=== PATIENT | male | born 1945 | race Caucasian/White ===

== ENCOUNTER 2019-10-21 17:37 | Inpatient (IN) | payer BC, MEDICARE ==
[~2019-10-21] VITALS: Ht 172.7 cm; Wt 83.4 kg
[2019-10-21] MEDS ORDERED: NS 1,000 ML IV SCH (17:50)
[2019-10-21] MEDS ORDERED: AMLO10TA5 PO (17:55)
[2019-10-21] MEDS ORDERED: SIMV40TA20 PO (17:55)
[2019-10-21] MEDS ORDERED: SPIR-10 PO (17:55)
[2019-10-21] MEDS ORDERED: ATEN100T PO (17:55)
[2019-10-21] MEDS ORDERED: CITA20TA6 PO (17:55)
[2019-10-21] MEDS ORDERED: QUIN40TA26 PO (17:55)
--- NOTE | 2019-10-21 18:10 | REPVR ---
PROCEDURE INFORMATION: Exam: CT Head Without Contrast Exam date and time: 10/21/2019 5:55 PM Age: 74 years old Clinical indication: Altered mental status/memory loss; Confusion or disorientation TECHNIQUE: Imaging protocol: Computed tomography of the head without contrast. Axial and coronal reformatted images were created and reviewed. Radiation optimization: All CT scans at this facility use at least one of these dose optimization techniques: automated exposure control; mA and/or kV adjustment per patient size (includes targeted exams where dose is matched to clinical indication); or iterative reconstruction. COMPARISON: No relevant prior studies available. FINDINGS: Brain: Patchy areas of hypoattenuation in the periventricular and subcortical white matter, consistent with chronic small vessel ischemic disease. Focal, well-circumscribed hypodensity in the right basal ganglia, consistent with remote insult. No CT evidence of acute intracranial hemorrhage or acute territorial infarction. No significant mass effect or midline shift. Basal cisterns patent. Ventricles: Prominence of the cortical sulci, cisterns and ventricular system, consistent with cerebral and cerebellar volume loss. Bones/joints: No acute osseous abnormality. Sinuses: Complete opacification of the left sphenoid sinus. Partial opacification of the ethmoid air cells , right sphenoid sinus and bilateral inferior frontal sinuses. Mastoid air cells: Grossly unremarkable. Soft tissues: Grossly unremarkable. Vasculature: Calcific atherosclerotic disease in the cavernous internal carotid arteries, as well as the vertebro-basilar system. IMPRESSION: 1. No CT evidence of acute intracranial pathology. 2. Additional findings, as above. Electronically signed by: Blake Stanton On 10/21/2019 18:10:35 PM
[2019-10-21 18:29] LABS: BASO # 0.1 10^3/uL (0.0-0.2); BASO % 0.9 % (0.0-1.0); EOS # 0.2 10^3/uL (0.0-0.5); EOS % 1.8 % (0.0-3.0); HEMATOCRIT 43.3 % (42.0-52.0); LYMPH # 3.4 10^3/uL (1.5-5.0); LYMPH % 27.4 % (24.0-44.0); MEAN CORPUSCULAR HEMOGLOBIN 31.9 pg (27.0-33.0); MEAN CORPUSCULAR HGB CONC 34.6 g/dl (32.0-36.5); MEAN CORPUSCULAR VOLUME 92.1 fl (80.0-96.0); MONO % 8.3 % (0.0-5.0); NEUTROPHILS # 7.7 10^3/uL (1.5-8.5); NEUTROPHILS % 61.3 % (36.0-66.0); PLATELET COUNT, AUTOMATED 156 10^3/uL (150-450); WHITE BLOOD COUNT 12.5 10^3/uL (4.0-10.0)
[2019-10-21 18:55] VITALS: BP 138/64
[2019-10-21 19:02] LABS: ACETAMINOPHEN LEVEL < 2.0 UG/ML (10.0-30.0); ALBUMIN 3.6 GM/DL (3.2-5.2); ALT/SGPT 20 U/L (12-78); BILIRUBIN,DIRECT 0.2 MG/DL (0.0-0.2); BILIRUBIN,TOTAL 0.8 MG/DL (0.2-1.0); BLOOD UREA NITROGEN 20 MG/DL (7-18); CALCIUM LEVEL 8.9 MG/DL (8.8-10.2); CARBON DIOXIDE LEVEL 23 MEQ/L (21-32); CHLORIDE LEVEL 106 MEQ/L (98-107); CK-MB VALUE MASS 1.9 NG/ML (<3.6); CPK CREATINE PHOSPHOKINASE 121 U/L (39-308); ETHYL ALCOHOL (ETHANOL) < 0.003 % (0.000-0.010); GLOMERULAR FILTRATION RATE > 60.0 (>42); GLUCOSE, FASTING 77 MG/DL (70-100); MB/CK RELATIVE INDEX 1.57 (< OR =4); POTASSIUM SERUM 4.5 MEQ/L (3.5-5.1); SALICYLATE LEVEL 3.5 MG/DL (5.0-30.0); SODIUM LEVEL 139 MEQ/L (136-145); TOTAL PROTEIN 7.3 GM/DL (6.4-8.2); TROPONIN I < 0.02 NG/ML (< 0.10)
[2019-10-21 19:12] LABS: AMPHETAMINES LEVEL URINE NEGATIVE (NEGATIVE); BARBITURATES URINE NEGATIVE (NEGATIVE); BENZODIAZEPINES URINE NEGATIVE (NEGATIVE); CANNABINOIDS URINE NEGATIVE (NEGATIVE); COCAINE METABOLITE URINE NEGATIVE (NEGATIVE); METHADONE URINE NEGATIVE (NEGATIVE); OPIATES URINE NEGATIVE (NEGATIVE); PHENCYCLIDINE URINE NEGATIVE (NEGATIVE)
--- NOTE | 2019-10-21 21:02 | HPEPDOC ---
[facility] Medical History & Physical Date of Admission October 21, 2019 Date of Service: October 21, 2019 Attending Physician: Adali Kitchen MD History and Physical CHIEF COMPLAINT: Altered mental status HISTORY OF PRESENT ILLNESS: Patient is a 74-year-old male with past medical history of CAD s/p CABG & stents x 2, newly diagnosed prostate cancer, HTN, depression, HLD who presented to the emergency room after having episodes of altered mental status at home. Patient states he was sitting talking to son when he started mumbling, the patient states that he didn't even understand himself what he was saying to his family. His family said that this lasted 6-8 mins today. It had happened on 10/20/19 as w lina. Hhere was no documented facial droop, drooling noted by family during these episodes. The patient admits to some increased depression due to having to be home more now, lethargy. He denies chest pain, shortness of breath, n/v/d, abdominal pain, sick contacts, decreased appetite, falling, lightheadedness, dizziness, blurry vision, headaches, weakness, cough, fever, bleeding. In the ER, VS were stable. CT head showed focal, well-circumscribed hypodensity in the right basal ganglia that could be consistent with remote insult in past but no evidence of acute pathology. Swallowing was wnl. The patient had some difficulty with serial sevens only. ECG showed normal sinus rhythm, troponin ne gative. CXR showed no acute cardiopulmonary findings. UDS neg. Patient was AAOx 3 and had no focal deficits on exam. Patient was admitted for further workup of altered mental status r/o TIA. PAST MEDICAL HISTORY: 1. CAD s/p CABG, stents x 2 2. Prostate cancer, diagnosed three months ago 3. HTN 4. Depression 5. HLD 6. ? old CVA, seen on new CT scan head PAST SURGICAL HISTORY: 1. CABG 2. cardiac stent placement SOCIAL HISTORY: Smoker-1 PPD, 50 years, cigarettes. denies alcohol, drug use. PCP- Dr. Rudi Rodriguez, Extracorporeal Technician- [facility], Hem/Onc- Dr. Bradshaw. Lives with his . DNR, trial period of intubation. FAMILY HISTORY: Father: CAD, DM type II. at 58 y/o. Mother: cancer, head. at 80 y/o. ALLERGIES: Please see below. HOME MEDICATIONS: Please see below. PHYSICAL EXAMINATION: CONSTITUTIONAL: No acute distress, resting comfortably, AAO x 3 EYES: PERRLA, EOM intact HENT, MOUTH: Normocephalic, atraumatic, moist mucous membranes NECK: SUPPLE, no JVD, no lymphadenopathy, no carotid bruit CV: Regular rate and rhythm, S1S2 normal, no murmurs/rubs/gallops RESPIRATORY: Clear to auscultation bilaterally, no rales/rhonchi/wheezes GI: BS positive in 4 quadrants, soft, nontender, nondistended, no rebound or guarding, no organomegaly : Deferred MUSCULOSKELETAL: Normal ROM. No cyanosis, clubbing, swelling, joint deformity, extremity edema INTEGUMENTARY: Intact, no rashes, no lesions, no erythema NEUROLOGIC: Strength 5/5 strenth in all extremities, no motor or sensory deficits. Cranial Nerves II-XII are intact, no focal deficits PSYCHIATRIC: Mood and affect are normal LABORATORY DATA: Please see below IMAGING: CXR: No acute cardiopulmonary findings. CT head: Focal, well-circumscribed hypodensity in the right basal ganglia, consistent with remote insult. No CT evidence of acute intracranial pathology. ASSESSMENT: 74 y/o M admitted for altered mental status r/o TIA vs. CVA. PLAN: 1. Altered mental status (AMS) r/o TIA vs. CVA. Prostate cancer would put patient at increased hypercoagulable state, concerning with diagnosis but no documented clot history. AMS resolved. Appears patient has had prior insults, unknown to him from CT head above. F/u echo, carotid US, tele to monitor for arrhythmias, lipid panel. Neuro checks Q4 hrs. Started on ASA, c/w home statin. Consider MRI in AM with prior history of likely undetected stroke and presenting symptoms. 2. Prostate cancer, new diagnosis. F/u with heme/onc as outpatient. 3. CAD s/p CABG, stent x 2. Denies chest pain, shortness of breath. ECG NSR, trop neg. C/w ASA, statin, BB. 4. HTN. Stable. C/w home medication. 5. Depression. C/w home medication. 6. HLD. F/u lipid panel. Statin. 7. Depression. Denies HI/SI. C/w home medication. 8. DVT px. Enoxaparin SC daily. DISPOSITION: Admitted under inpatient status. Plan is discharge home when med ically improved. Vital Signs Vital Signs Date Time Temp Pulse Resp B/P (MAP) Pulse Ox O2 Delivery O2 Flow Rate FiO2 10/21/19 20:00 Room Air 10/21/19 19:28 18 98 10/21/19 19:15 56 140/64 (89) 10/21/19 18:55 99.0 Laboratory Data Labs 24H Laboratory Tests 2 10/21/19 18:13: Immature Granulocyte % (Auto) 0.3, Neutrophils (%) (Auto) 61.3, Lymphocytes (%) (Auto) 27.4, Monocytes (%) (Auto) 8.3H, Eosinophils (%) (Auto) 1.8, Basophils (%) (Auto) 0.9, Neutrophils # (Auto) 7.7, Lymphocytes # (Auto) 3.4, Monocytes # (Auto) 1.0H, Eosinophils # (Auto) 0.2, Basophils # (Auto) 0.1, Nucleated Red Blood Cells % (auto) 0.0, Anion Gap 10, Glomerular Filtration Rate > 60.0, Calc ium Level 8.9, Total Bilirubin 0.8, Direct Bilirubin 0.2, Aspartate Amino Transf (AST/SGOT) 14, Alanine Aminotransferase (ALT/SGPT) 20, Alkaline Phosphatase 68, Ammonia 22, Total Creatine Kinase 121, Creatine Kinase MB 1.9, Creatine Kinase MB Relative Index 1.57, Troponin I < 0.02, Total Protein 7.3, Albumin 3.6, Albumin/Globulin Ratio 1.0, Thyroid Stimulating Hormone (TSH) 1.190, Salicylates Level 3.5L, Acetaminophen Level < 2.0L, Ethyl Alcohol Level < 0.003 10/21/19 18:20: Urine Color ANDRE, Urine Appearance CLEAR, Urine pH 6.0, Urine Specific Webster 1.025, Urine Protein NEGATIVE, Urine Glucose (UA) NEGATIVE, Urine Ketones 1+H, Urine Blood NEGATIVE, Urine Nitrite NEGATIVE, Urine Bilirubin NEGATIVE, Urine Urobilinogen 2.0H, Urine Leukocyte Esterase NEGATIVE, Urine WBC (Auto) 0, Urine RBC (Auto) 1, Urine Hyaline Casts (Auto) 5, Urine Bacteria (Auto) NEGATIVE, Urine Squamous Epithelial Cells 0, Urine Mucus (Auto) LARGE, Urine Sperm (Auto) , Urine Opiates Screen NEGATIVE, Urine Methadone Screen NEGATIVE, Urine Barbiturates Screen NEGATIVE, Urine Phencyclidine Screen NEGATIVE, Urine Amphetamines Screen NEGATIVE, Urine Benzodiazepines Screen NEGATIVE, Urine Cocaine Metabolite Screen NEGATIVE, Urine Cannabinoids Screen NEGATIVE CBC/BMP Laboratory Tests 10/21/19 18:13 Home Medications Scheduled Amlodipine Besylate (Amlodipine Besylate) 10 Mg Tablet, 10 MG PO DAILY Atenolol (Atenolol) 100 Mg Tablet, 100 MG PO QHS Citalopram Hydrobromide (Citalopram HBr) 20 Mg Tablet, 20 MG PO DAILY Quinapril HCl (Quinapril HCl) 40 Mg Tablet, 40 MG PO DAILY Simvastatin (Simvastatin) 40 Mg Tablet, 40 MG PO QHS Spironolactone (Spironolactone) 25 Mg Tablet, 25 MG PO QAM Allergies Coded Allergies: No Known Allergies (Unverified , 10/21/19) A-FIB/CHADSVASC A-FIB History Current/History of A-Fib/PAF?: No Current PO Anticoag Therapy: No Age/Risk Factor Scoring CHADSVASC: CHADSVASC Response (Comments) Value Age Risk Factor Age >/= 75 years old 2 Hx of CHF No 0 Hx of HTN Yes 1 Hx of Stroke/TIA/or VTE Yes 2 Hx of Diabetes No 0 Hx of Vascular Disease No 0 Total 5 Treatment Treatment ordered: Other (enoxaparin) Other anticoagulant ordered: enoxaparin Adali Kitchen MD October 21, 2019 21:02
[2019-10-21 21:42] LABS: INR 1.07; PROTHROMBIN TIME 13.6 SECONDS (11.8-14.0)
[2019-10-21 21:43] LABS: PARTIAL THROMBOPLASTIN TIME 31.8 SECONDS (25.0-38.4)
[2019-10-21 22:15] VITALS: BP 135/61
[2019-10-21 22:56] VITALS: BP 159/62
[2019-10-21 22:57] LABS: CHOLESTEROL LEVEL 137 MG/DL (<200); CHOLESTEROL RISK RATIO 3.914 (<5); HDL CHOLESTEROL 35 MG/DL (>40); LDL CHOLESTEROL 83 MG/DL (<100); NON-HDL-C 102 MG/DL; TRIGLYCERIDES LEVEL 94 MG/DL (<150)
[2019-10-21] MEDS: atenoloL 50 MG TAB PO SCH (23:50)
[2019-10-22] VITALS (7 sets, daily range): BP systolic 115–156; BP diastolic 55–69
[2019-10-22] MEDS: ASPIRIN 81 MG CHEW TABLET PO SCH ×2 (00:04→21:02)
[2019-10-22] MEDS: ENOXAPARIN 40MG/0.4ML SYRINGE (J1650 PER 10MG) SC SCH ×2 (00:05→21:01)
--- NOTE | 2019-10-22 01:41 | REPVR ---
PROCEDURE INFORMATION: Exam: US Duplex Bilateral Extracranial Arteries Exam date and time: 10/22/2019 1:00 AM Age: 74 years old Clinical indication: Other: TIA TECHNIQUE: Imaging protocol: Real-time Duplex ultrasound scan of the bilateral carotid and vertebral arteries combining rudolph scale, color Doppler and spectral waveform analysis. Bilateral exam. COMPARISON: CT Head without contrast 10/21/2019 5:53 PM FINDINGS: Right common carotid artery: Small amount of atherosclerotic plaque. No occlusion or stenosis. Waveforms are normal. Right internal carotid artery: Small amount of atherosclerotic plaque in the bulb. No occlusion or stenosis. Waveforms are normal. Right ICA/CCA ratio: Within normal limits. Right external carotid artery: No stenosis in the origin. Right vertebral artery: Unremarkable. Antegrade flow. Left common carotid artery: Small amount of atherosclerotic plaque distally. No occlusion or stenosis. Waveforms are normal. Left internal carotid artery: Small amount of atherosclerotic plaque in the bulb. No occlusion or stenosis. Waveforms are normal. Left ICA/CCA ratio: Within normal limits. Left external carotid artery: No stenosis in the origin. Left vertebral artery: Unremarkable. Antegrade flow. IMPRESSION: No hemodynamically significant carotid arterial stenosis. REFERENCES: SRU CRITERIA. The degree of internal carotid artery stenosis is based on criteria defined by the Society of Radiologists in Ultrasound (SRU). Normal is no stenosis. Mild is less than 50% stenosis. Moderate is 50-69% stenosis. Severe is greater than 69% stenosis to near occlusion. Near occlusion is a markedly narrowed lumen. Total occlusion is no detectable patent lumen. Electronically signed by: Blake Stanton On 10/22/2019 01:40:47 AM
[2019-10-22 06:43] LABS: HEMATOCRIT 43.6 % (42.0-52.0); HEMOGLOBIN 14.4 g/dl (13.5-17.5); MEAN CORPUSCULAR HEMOGLOBIN 30.9 pg (27.0-33.0); MEAN CORPUSCULAR VOLUME 93.6 fl (80.0-96.0); PLATELET COUNT, AUTOMATED 143 10^3/uL (150-450); RED BLOOD COUNT 4.66 10^6/uL (4.30-6.10); WHITE BLOOD COUNT 10.2 10^3/uL (4.0-10.0)
[2019-10-22 07:16] LABS: ALBUMIN 3.3 GM/DL (3.2-5.2); ALT/SGPT 16 U/L (12-78); BILIRUBIN,TOTAL 0.7 MG/DL (0.2-1.0); BLOOD UREA NITROGEN 22 MG/DL (7-18); CALCIUM LEVEL 8.6 MG/DL (8.8-10.2); CARBON DIOXIDE LEVEL 27 MEQ/L (21-32); CHLORIDE LEVEL 106 MEQ/L (98-107); CREATININE FOR GFR 0.82 MG/DL (0.70-1.30); GLOMERULAR FILTRATION RATE > 60.0 (>42); GLUCOSE, FASTING 91 MG/DL (70-100); POTASSIUM SERUM 4.6 MEQ/L (3.5-5.1); SODIUM LEVEL 138 MEQ/L (136-145); TOTAL PROTEIN 6.9 GM/DL (6.4-8.2)
--- NOTE | 2019-10-22 07:27 | ECGEPIP ---
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
[2019-10-22] MEDS ORDERED: amLODIPine 10 MG TAB PO SCH (09:00)
[2019-10-22] MEDS: SPIRONOLACTONE 25 MG TAB PO SCH (09:02)
[2019-10-22] MEDS: CitaloPRAM (CeleXA) 20 MG TAB PO SCH (09:02)
[2019-10-22] MEDS: lisinopriL 40 MG TAB PO SCH (09:03)
--- NOTE | 2019-10-22 10:18 | REP ---
Clinical: Altered mental status . Comparison: None . Findings: The mediastinum and cardiac silhouette are stable and within normal limits for portable technique. Evidence of prior sternotomy and CABG. The lung uribe are clear without acute consolidation, effusion, or pneumothorax. Skeletal structures are intact. Impression: No acute cardiopulmonary process appreciated. Electronically Signed by Nolan Cortez MD 10/22/2019 10:09 A
--- NOTE | 2019-10-22 13:12 | REPVR ---
PROCEDURE INFORMATION: Exam: MR Head Without Contrast Exam date and time: 10/22/2019 12:18 PM Age: 74 years old Clinical indication: Speech disturbance; Patient HX: PT states confusion/aphasia 10/20/19 that subsided within 10 minutes, and came back 10/21/19 for approx 20 minutes then subsided. PT states no HX of CVA, no priors TECHNIQUE: Imaging protocol: MR of the head without contrast. COMPARISON: CT Head without contrast 10/21/2019 5:53 PM FINDINGS: Brain: Focal, non contiguous areas of true diffusion restriction in the left temporoparietal deep white matter and along the left parietal cortices in keeping with recent acute to subacute infarcts; the most conspicuous infarcts demonstrate mild correlative cytotoxic edema on the T2 weighted imaging. There is no evidence of hemorrhagic conversion. The brain demonstrates generalized volume loss. Patchy foci of increased signal intensity in the deep and subcortical white matter on the T2 weighted imaging most likely representing chronic small vessel ischemic change. A chronic right basal ganglia lacunar infarct demonstrates hemosiderin staining. Vasculature: Flow void for the M1 segment of the left middle cerebral artery is visualized, appears less conspicuous than on the right, but could feasibly be related to volume averaging/slice selection. Ventricles: The ventricles appear mildly enlarged in keeping with volume loss. Bones/joints: Unremarkable. Soft tissues: Unremarkable. Sinuses: The left sphenoid sinus is opacified by mucosal disease. There is moderate ethmoid opacity. Relatively mild left maxillary sinus mucosal thickening. A midline posterior nasopharyngeal Tornwaldt or mucosal retention cyst measures 6 mm. Mastoid air cells: Normal as visualized. No mastoid effusion. Orbits: Unremarkable. IMPRESSION: Small, recent acute to subacute, separate left parietal deep white matter and cortical infarcts. Electronically signed by: Nayana Bianchi On 10/22/2019 13:12:18 PM
--- NOTE | 2019-10-22 13:53 | IPNPDOC ---
Text Note Date of Service The patient was seen on 10/22/19. NOTE Subjective: Patient is a 68 2/1 male with a PMHx of CAD s/p CABG and stents x2, HTN, DLP, Depression, Prostate CA (Newly diagnosed), who presented to the ER after having an episode of confusion and difficulty word finding while at home. Patient was in the middle of a conversation with his son when he started to mumble and had difficulty expressing his words. . She reported that this occurred for about 6-8 minutes on 10/19 and fully resolved. Patient presented to the ER on 10/20 for further evaluation. Patient was seen and examined at the bedside. And currently reports that he does not express any headache, nausea, vomiting, chest pain, short of breath, palpitations, cough, abdominal pain, sedation, diarrhea, or urinary discomfort. Patient hospice any further symptoms since that first occurrence. Objective: Vitals (See below) General: Lying in bed, appears comfortable, AAOx3 HEENT: NC, AT CVS: +S1S2 Lungs: Fair air entry b/l, no visual rhonchi, wheezing or crackles Abdomen: Soft, ND, NT, +BSx4 Extremities: - Edema, - Calf tenderness Assessment and plan: Expressive aphasia - likely 2/2 acute on subacute L parietal deep white matter and cortical infarcts - Patient reports that they've had full resolution of their symptoms - Patient has been on aspirin 81, as an outpatient 2 months ago but had stopped - Remain hemodynamically stable - Lipid profile noted - CT head 10/21: - MRI Brain 10/21: Small, recent acute to subacute, separate left parietal deep white matter and cortical infarcts. - Carotid duplex us 10/21: No hemodynamically significant carotid arterial stenosis. - ECHO pending - Will order MRA brain - c/w Neurochecks - c/w ASA 81 and Simvastatin Prostate cancer - Recently diagnosed - Will have outpatient follow up with Oncology CAD s/p CABG & Stent x 2 - Currently is asymptomatic and denies chest pain, shortness of breath - Troponin negative - EKG without any ischemic changes - c/w ASA, Simvastatin and Atenolol HTN - BP currently well controlled - Allow for permissive HTN - Will discontinue Amlodipine - c/w Atenolol and Spironolactone with holding parameters DLP - c/w Simvastatin Depression - c/w Citalopram DVT prophylaxis - c/w Lovenox Disposition: - Will keep patient for another 24 hours for continued telemetry monitoring VS,Viktoriya, I+O VS, Viktoriya, I+O Laboratory Tests 10/21/19 18:13 10/22/19 06:17 Vital Signs Date Time Temp Pulse Resp B/P (MAP) Pulse Ox O2 Delivery O2 Flow Rate FiO2 10/22/19 10:00 98.9 87 15 125/55 (78) 92 Room Air I&O- Last 24 Hours up to 6 AM 10/22/19 05:59 Intake Total 600 ml Output Total 0 ml Balance 600 ml ANGELA ASHFORD MD October 22, 2019 13:53
[2019-10-22] MEDS ORDERED: SIMVASTATIN 40 MG TAB PO SCH (21:00)
[2019-10-22] MEDS: atenoloL 50 MG TAB PO SCH (21:00)
[2019-10-23 02:00] VITALS: BP 139/69
[2019-10-23 06:00] VITALS: BP 142/61
[2019-10-23] MEDS: lisinopriL 40 MG TAB PO SCH (08:52)
[2019-10-23] MEDS: SPIRONOLACTONE 25 MG TAB PO SCH (08:52)
[2019-10-23] MEDS: CitaloPRAM (CeleXA) 20 MG TAB PO SCH (08:52)
[2019-10-23 10:00] VITALS: BP 142/61
[2019-10-23] MEDS ORDERED: ASPI81CH8 PO (10:14)
--- NOTE | 2019-10-23 13:10 | REP ---
MR angiography the brain without contrast: History: CVA. A fascia. Technique: 3-D [id number] MR angiography of the brain is acquired in the usual fashion and maximal intensity projection images were generated in rotational format about the vertical and horizontal axes. In addition, source axial T1-weighted images are viewed in cine mode. MR angiographic findings: The distal vertebral arteries are patent and co-dominant. Basilar artery is a little tortuous but widely patent. The posterior cerebral and superior cerebellar vessels are normal and symmetric. The distal internal carotid arteries are unremarkable. There is a focal high-grade stenosis of the distal middle cerebral artery on the left at its bifurcation. This is at the lateral to the acute infarct pattern seen on yesterday's MRI brain study. There is no evidence of bains aneurysm or arteriovenous malformation. No vessel cutoff is seen. Impression: High-grade stenosis of the distal middle cerebral artery on the left at its bifurcation. Otherwise negative. Electronically Signed by Topher Ferrari MD 10/23/2019 01:02 P
--- NOTE | 2019-10-23 15:35 | DS.PDOC ---
Discharge Summary General Date of Admission October 21, 2019 at 20:31 Date of Discharge 10/23/19 Discharge Summary PROCEDURES PERFORMED DURING STAY: [None]. SECONDARY DIAGNOSES: 1. CAD s/p CABG, stents x 2 2. Prostate cancer, diagnosed three months ago 3. HTN 4. Depression 5. HLD 6. CVA COMPLICATIONS/CHIEF COMPLAINT: TIA. HISTORY OF PRESENT ILLNESS: Patient is a 74-year-old male with past medical history of CAD s/p CABG & stents x 2, newly diagnosed prostate cancer, HTN, depression, HLD who presented to the emergency room after having episodes of altered mental status at home. Patient stated he was sitting talking to son when he started mumbling, the patient stated that he didn't even understand himself what he was saying to his family. His family said that this lasted 6-8 mins. It had happened on 10/20/19 as well. There was no documented facial droop, drooling noted by family during these episodes. The patient admits to some increased depression due to having to be home more now, lethargy. In the ER, VS were stable. CT head showed focal, well-circumscribed hypodensity in the right basal ganglia that could be consistent with remote insult in past but no evidence of acute pathology. Swallowing was wnl. The patient had some difficulty with serial sevens only. ECG showed normal sinus rhythm, troponin negative. CXR showed no acute cardiopulmonary findings. UDS neg. Patient was AAOx 3 and had no focal deficits on exam. Patient was admitted for further workup of altered mental status r/o TIA. HOSPITAL COURSE: MRI did reveal acute-subacute left parietal infarct, and cortical infarcts. Neurology previously consulted. Further workup was unremarkable. Patient medically optimized, and discharged home with outpatient follow up. Expressive aphasia - likely 2/2 acute on subacute L parietal deep white matter and cortical infarcts - Patient reported full resolution of symptoms - Patient has been on aspirin 81, as an outpatient 2 months ago but had stopped - MRI Brain 10/21: Small, recent acute to subacute, separate left parietal deep white matter and cortical infarcts. - Carotid duplex us 10/21: No hemodynamically significant carotid arterial stenosis. - ECHO pending report - no gross abnormalities - follow up outpatient for results - MRA brain pending report - ASA 81 and Simvastatin Prostate cancer - Recently diagnosed - Will have outpatient follow up with Oncology CAD s/p CABG & Stent x 2 - Currently is asymptomatic and denies chest pain, shortness of breath - Troponin negative - EKG without any ischemic changes - c/w ASA, Simvastatin and Atenolol HTN - BP well controlled - Will discontinue Amlodipine - c/w Atenolol and Spironolactone with holding parameters DLP - c/w Simvastatin Depression - c/w Citalopram DISCHARGE MEDICATIONS: Please see below. ALLERGIES: Please see below. PHYSICAL EXAMINATION ON DISCHARGE: Vitals (See below) General: Lying in bed, appears comfortable, AAOx3 HEENT: NC, AT CVS: +S1S2 Lungs: Fair air entry b/l, no visual rhonchi, wheezing or crackles Abdomen: Soft, ND, NT, +BSx4 Extremities: - Edema, - Calf tenderness LABORATORY DATA: Please see below. ACTIVITY: [As tolerated]. DIET: 2 gram sodium, heart healthy DISPOSITION: Home, Self-Care. DISCHARGE INSTRUCTIONS: 1. Follow up neurology in 7-10 days or as scheduled. 2. FOllow up PCP in 3-5 days. 3. Follow up oncology as scheduled DISCHARGE CONDITION: [Stable]. TIME SPENT ON DISCHARGE: 35 minutes. Vital Signs/I&Os Vital Signs Date Time Temp Pulse Resp B/P (MAP) Pulse Ox O2 Delivery O2 Flow Rate FiO2 10/23/19 10:00 98.6 55 12 142/61 (88) 96 Room Air I&O- Last 24 Hours up to 6 AM 10/23/19 06:00 Intake Total 1010 ml Output Total 1225 ml Balance -215 ml Discharge Medications Scheduled Amlodipine Besylate (Amlodipine Besylate) 10 Mg Tablet, 10 MG PO DAILY, (Reported) Aspirin (Children's Aspirin) 81 Mg Tab.chew, 81 MG PO DAILY@2100 Atenolol (Atenolol) 100 Mg Tablet, 100 MG PO QHS, (Reported) Citalopram Hydrobromide (Citalopram HBr) 20 Mg Tablet, 20 MG PO DAILY, (Reported) Quinapril HCl (Quinapril HCl) 40 Mg Tablet, 40 MG PO DAILY, (Reported) Simvastatin (Simvastatin) 40 Mg Tablet, 40 MG PO QHS, (Reported) Spironolactone (Spironolactone) 25 Mg Tablet, 25 MG PO QAM, (Reported) Allergies Coded Allergies: No Known Allergies (Unverified , 10/21/19) ALEKSANDER CORLEY MD October 23, 2019 15:35
--- NOTE | 2019-10-23 21:58 | ECHO ---
DATE OF PROCEDURE: 10/22/2019 DATE OF : 1945 AGE: 74 GENDER: Male HEIGHT: 68 inches WEIGHT: 183 pounds BODY SURFACE AREA: 1.97 meters squared INPATIENT: [address] [place] [address], room 4222 REFERRING PHYSICIAN: Yanni García MD INDICATION: Acute myocardial infarction. Transient ischemic attack (TIA). MEASUREMENTS: 2D Measurements: RV: 3.9 cm LV: 3.8 cm Septum: 1.2 cm Posterior wall: 1.2 cm Aortic root: 3.2 cm LA: 4.0 cm LVEF: 75-80% DOPPLER MEASUREMENTS: AV: 1.4 meters per second LVOT: 1.2 meters per second LVOT diameter: 1.9 cm MV-E: 81, A: 94, EA ratio: 0.9 Early mitral deceleration time: 320 milliseconds E prime medial: 6.6, A prime: 8.4, E prime lateral: 7. Average E/E prime ratio: 11.9/PCWP 16.7 mmHg PV: 0.8 meters per second Pulmonary artery acceleration time: 109 ms RVSP: 34 mmHg IVC: 1.1 cm COMMENT: Sinus bradycardia without intraventricular conduction disturbance. Technically challenging study in light of the patient's body habitus but diagnostically useful information was still obtained. M-mode and two-dimensional echocardiography was performed with pulsed, continuous wave, color flow and tissue Doppler studies. Borderline concentric left ventricular hypertrophy with hyperkinetic wall motion. Mildly dilated left atrium with grade 1 left ventricular (LV) diastolic dysfunction and current estimated mean left atrial pressure upper limits of normal to mildly increased. Right heart chamber sizes were upper limits of normal with normal wall motion and Doppler evidence of mild pulmonary hypertension. Normal inferior vena cava (IVC) size and collapse against an elevated central venous pressure at this time. Normal aortic dimensions. Mild aortic valvular sclerosis without functional abnormality. Moderately severe mitral annular calcification without inflow tract obstruction and only very mild insufficiency. Normal appearing tricuspid valve with very mild insufficiency (physiologic). No apparent intracardiac mass or pericardial effusion. Unable to identify localized wall motion abnormality consistent with myocardial infarction. If a cardiac source of embolic material is seriously suspect, in light of the technical difficulties of the study, a transesophageal echocardiogram should be considered.
== END 2019-10-23 13:48 | disposition home or self-care (01) | DRG 45 ==
LOC: M ED 17:37 → EDBD 17:37 → M ED INP 20:31 → ENRESERV 22:05 → M MSPAV 22:56
PROVIDERS: ADMIT Internal Medicine; ATTEND Internal Medicine
DX: I63.59 Cerebral infarction due to unspecified occlusion or stenosis of other cerebral artery (principal); R47.01 Aphasia; C61 Malignant neoplasm of prostate; I25.10 Atherosclerotic heart disease of native coronary artery without angina pectoris; I10 Essential (primary) hypertension; F32.9 Major depressive disorder, single episode, unspecified; E78.5 Hyperlipidemia, unspecified; F17.210 Nicotine dependence, cigarettes, uncomplicated; Z66 Do not resuscitate; Z95.5 Presence of coronary angioplasty implant and graft; Z79.899 Other long term (current) drug therapy

== ENCOUNTER 2023-12-13 08:19 | Emergency (ER) | payer MEDICAID, MEDICARE ==
[~2023-12-13] VITALS: Ht 170.2 cm; Wt 73.1 kg
[~2023-12-13 08:19] MED LIST: AMLO1TAB25 PO; ASPI81CH8 PO; ATEN100T PO; CITA20TA6 PO; QUIN40TA26 PO; SIMV40TA20 PO; SPIR-10 PO
[2023-12-13] MEDS ORDERED: NORV5TAB PO (08:35)
[2023-12-13] MEDS ORDERED: ATEN25TA PO (08:35)
[2023-12-13] MEDS ORDERED: NITR0.4S14 SL (08:35)
[2023-12-13 08:50] LABS: BASO # 0.1 10^3/uL (0.0-0.2); BASO % 0.6 % (0.0-1.0); EOS # 0.6 10^3/uL (0.0-0.5); EOS % 4.1 % (0.0-3.0); HEMOGLOBIN 13.7 g/dl (13.5-17.5); LYMPH # 1.2 10^3/uL (1.5-5.0); LYMPH % 8.6 % (24.0-44.0); MEAN CORPUSCULAR HEMOGLOBIN 29.5 pg (27.0-33.0); MEAN CORPUSCULAR HGB CONC 32.6 g/dl (32.0-36.5); MEAN CORPUSCULAR VOLUME 90.5 fl (80.0-96.0); MONO % 7.3 % (2.0-8.0); NEUTROPHILS # 11.3 10^3/uL (1.5-8.5); NEUTROPHILS % 78.8 % (36.0-66.0); PLATELET COUNT, AUTOMATED 144 10^3/uL (150-450); RED BLOOD COUNT 4.64 10^6/uL (4.30-6.10); WHITE BLOOD COUNT 14.3 10^3/uL (4.0-10.0)
[2023-12-13] MEDS: ASPIRIN 81MG CHEW TABLET PO ONE (09:26)
[2023-12-13 10:11] LABS: CK-MB VALUE MASS 8.8 NG/ML (<3.6)
[2023-12-13 10:12] LABS: BLOOD UREA NITROGEN 30 MG/DL (9-23); CALCIUM LEVEL 9.1 MG/DL (8.3-10.6); CARBON DIOXIDE LEVEL 27 MMOL/L (20-31); CHLORIDE LEVEL 108 MMOL/L (98-107); CPK CREATINE PHOSPHOKINASE 71 U/L (46-171); CREATININE FOR GFR 0.83 MG/DL (0.70-1.30); GLOMERULAR FILTRATION RATE > 60.0 (>35); GLUCOSE, FASTING 101 MG/DL (74-106); MB/CK RELATIVE INDEX 12.39 (< OR =4); POTASSIUM SERUM 4.1 MMOL/L (3.5-5.1); SODIUM LEVEL 141 MMOL/L (136-145)
[2023-12-13] MEDS ORDERED: HEPARIN SOD (PORCINE) 5000UNITS/ML 1ML VIAL/SYRINGE IV PRN (10:30)
[2023-12-13] MEDS: HEPARIN DRIP 25,000 UNITS in IV 1 EA IV SCH (10:49)
[2023-12-13] MEDS: HEPARIN SOD (PORCINE) 5000UNITS/ML 1ML VIAL/SYRINGE IV ONE (10:50)
[2023-12-13 10:57] LABS: INR 1.16; PARTIAL THROMBOPLASTIN TIME 25.1 SECONDS (24.8-34.2); PROTHROMBIN TIME 14.5 SECONDS (12.5-14.5)
[2023-12-13 11:11] LABS: CK-MB VALUE MASS 14.9 NG/ML (<3.6)
[2023-12-13 11:12] LABS: MB/CK RELATIVE INDEX 16.37 (< OR =4)
[2023-12-13 12:30] VITALS: BP 144/65; TEMP 98.4; O2SAT 95
[2023-12-19] MEDS ORDERED: METO1TAB7 PO (13:22)
[2023-12-19] MEDS ORDERED: ACET1TAB37 PO (13:22)
[2023-12-19] MEDS ORDERED: VARE1TAB2 PO (13:22)
[2023-12-19] MEDS ORDERED: ATOR40TA75 PO (13:22)
[2023-12-19] MEDS ORDERED: LIDO1PAD TOP (13:22)
[2023-12-19] MEDS ORDERED: CLOP75TA2 PO (13:22)
[2023-12-19] MEDS ORDERED: LOSA25TA13 PO (13:22)
[2023-12-19] MEDS ORDERED: SENO8.6T10 PO (14:00)
[2023-12-19] MEDS ORDERED: PERC5TAB12 PO (14:00)
== END 2023-12-13 12:44 | disposition short-term general hospital (02) ==
LOC: M ED 08:19
DX: I21.4 Non-ST elevation (NSTEMI) myocardial infarction (principal); I49.3 Ventricular premature depolarization; I44.4 Left anterior fascicular block; I51.7 Cardiomegaly; I25.2 Old myocardial infarction; I10 Essential (primary) hypertension; E78.5 Hyperlipidemia, unspecified; Z85.118 Personal history of other malignant neoplasm of bronchus and lung; Z86.79 Personal history of other diseases of the circulatory system; Z87.891 Personal history of nicotine dependence; Z79.82 Long term (current) use of aspirin; Z79.899 Other long term (current) drug therapy

== ENCOUNTER → 2023-12-29 | Outpatient (CLI) | payer MEDICARE ==
[~2023-12-29] VITALS: Ht 172.7 cm; Wt 70.9 kg
[~2023-12-29] MED LIST changes: +ACET1TAB37 PO; +ATEN25TA PO; +ATOR40TA75 PO; +CLOP75TA2 PO; +DEXA1TA PO; +DULC10SU2 PR; +LIDO1PAD TOP; +LOSA25TA13 PO; +METO1TAB7 PO; +MORP-69 PO; +NITR0.4S14 SL; +NORV5TAB PO; +OXYC10TA12 PO; +PERC5TAB12 PO; +PROC5TAB57 PO; +SENO8.6T10 PO; +VARE1TAB2 PO
[2023-12-29 10:24] VITALS: BP 149/76; O2SAT 97
== END ==
LOC: M PAL 10:09
PROVIDERS: ATTEND Nurse Practitioner Adult Health
DX: G89.3 Neoplasm related pain (acute) (chronic) (principal); M54.50 Low back pain, unspecified; R10.11 Right upper quadrant pain; R06.01 Orthopnea; R06.02 Shortness of breath; R91.8 Other nonspecific abnormal finding of lung field; K76.89 Other specified diseases of liver; R11.0 Nausea; K59.00 Constipation, unspecified; R53.81 Other malaise; R41.82 Altered mental status, unspecified; I25.2 Old myocardial infarction; F17.210 Nicotine dependence, cigarettes, uncomplicated; Z85.46 Personal history of malignant neoplasm of prostate; Z66 Do not resuscitate; Z86.79 Personal history of other diseases of the circulatory system; Z51.5 Encounter for palliative care; I10 Essential (primary) hypertension; Z79.52 Long term (current) use of systemic steroids; Z79.891 Long term (current) use of opiate analgesic; Z79.82 Long term (current) use of aspirin; Z79.02 Long term (current) use of antithrombotics/antiplatelets; Z79.899 Other long term (current) drug therapy; Z80.8 Family history of malignant neoplasm of other organs or systems; Z92.3 Personal history of irradiation

== ENCOUNTER → 2024-01-02 | Outpatient (CLI) | payer MEDICARE | LOC: M PLARAD 09:45 | PROVIDERS: ATTEND Internal Medicine Medical Oncology | DX: R91.1 Solitary pulmonary nodule (principal); C22.9 Malignant neoplasm of liver, not specified as primary or secondary | CPT/HCPCS: 78815; A9552 ==